=== PATIENT | male | born 1950 | race Caucasian/White ===

== ENCOUNTER 2016-09-03 02:48 | Inpatient (IN) ==
[2016-08-28 14:45] LABS: MANUAL DIFF NEEDED? NO
[2016-08-28 14:45] LABS: URINE MICRO REVIEW NEEDED? NO; URINE SOURCE CLEAN CATCH
--- NOTE | 2016-08-28 14:45 | EKG Report ---
Test Performed on : 08/28/2016 2:38:47 PM Test Reason : PAT Blood Pressure : / mmHG Vent. Rate : 064 BPM Atrial Rate : 064 BPM P-R Int : 180 ms QRS Dur : 086 ms QT Int : 426 ms P-R-T Axes : 034 008 040 degrees QTc Int : 439 ms Normal sinus rhythm. Normal ECG When compared with ECG of 11-MAR-2016 11:06, No significant change was found Confirmed by Timothy MENDEZ, José Zraate ([id number]) on 08/29/2016 9:42:37 PM
[2016-08-28 14:58] LABS: INR 1.08; PROTIME 11.4 Seconds (9.2-11.7); PTT 35.2 Seconds (22.0-36.0)
[2016-08-28 15:06] LABS: BILIRUBIN URINE NEGATIVE (NEGATIVE); BLOOD URINE NEGATIVE (NEGATIVE); COLOR YELLOW; GLUCOSE URINE NEGATIVE (NEGATIVE); LEUKOCYTES URINE NEGATIVE (NEGATIVE); NITRITE URINE NEGATIVE (NEGATIVE); PH URINE 5.5; PROTEIN URINE NEGATIVE (NEGATIVE); SP GRAVITY URINE 1.007; TURBIDITY URINE CLEAR (CLEAR); UR EPITHELIAL CELLS <10 /HPF (<10); URINE BACTERIA NEGATIVE /HPF; URINE RBC <10 /HPF (<10); URINE WBC <10 /HPF (<10); UROBILINOGEN URINE NORMAL (NORMAL)
[2016-08-28 15:09] LABS: BASO% 0.5 % (0.0-0.8); EOS# 0.24 X1000 (0.0-0.7); EOS% 3.9 % (0.0-10.0); HEMATOCRIT 46.9 % (42.0-52.0); HEMOGLOBIN 16.4 g/dL (14.0-18.0); LYMPH# 2.84 X1000 (1.2-3.4); MCV 91.6 FL (81-99); MONO# 0.61 X1000 (0.11-0.59); MONO% 9.9 % (1.7-9.3); MPV 10.9 FL (7.4-10.4); NEUT% 39.7 % (42.2-75.2); PLT 188 X1000 (130-400); RBC 5.12 XMIL (4.7-6.1)
[2016-08-28 15:19] LABS: CALCIUM 9.3 mg/dL (8.8-10.2); POTASSIUM 4.1 mmol/L (3.5-5.1)
[2016-09-03] MEDS ORDERED: DYAZIDE PO PRN (06:05)
[2016-09-03] MEDS ORDERED: KEFZOL 2 GM/D5W 2 GM/50 ML IVPB ONE (08:24)
[2016-09-03] MEDS ORDERED: PEPCID ONE ×2 (08:24)
[2016-09-03] MEDS ORDERED: LYRICA ONE (08:25)
[2016-09-03] MEDS ORDERED: LR 1,000 ML ONE (08:25)
[2016-09-03] MEDS ORDERED: COLACE ONE (08:25)
[2016-09-03] MEDS ORDERED: CELEBREX ONE (08:25)
[2016-09-03] MEDS ORDERED: REGLAN ONE (08:53)
[2016-09-03] MEDS ORDERED: NAROPIN 0.5% ONE (10:05)
[2016-09-03] MEDS ORDERED: VERSED ONE (10:09)
--- NOTE | 2016-09-03 10:13 | HISTORY AND PHYSICAL ---
CHIEF COMPLAINT: Right shoulder pain. HISTORY OF PRESENT ILLNESS: The patient has progressively had right shoulder pain over the years which has progressively gotten worse. Radiographic images obtained of his shoulder reveal images consistent with advanced degenerative joint disease. He will be admitted today for a right total shoulder arthroplasty. PAST MEDICAL HISTORY: 1. Asthma. 2. Obstructive sleep apnea. 3. Pulmonary embolus. 4. Hypertension. 5. Gastroesophageal reflux disease. 6. Peptic ulcer disease. 7. Kidney stones. 8. Osteoarthritis. PAST SURGICAL HISTORY: 1. Umbilical hernia. 2. Gallbladder surgery. 3. Right total knee arthroplasty. 4. Bilateral carpal tunnel surgery. 5. Left total shoulder arthroplasty. FAMILY HISTORY: Noncontributory. SOCIAL HISTORY: Patient is . Denies using tobacco, denies using alcohol. CURRENT HOME MEDICATIONS: Temazepam 30 mg p.o. at bedtime, triamterene, hydrochlorothiazide 37.5 mg-25 mg 1 p.o. p.r.n., Xarelto 20 mg daily. Omeprazole 40 mg p.o. daily. MSN 1000 mg p.o. daily, Ultram 50 mg p.o. q.4 hours p.r.n. for pain. ALLERGIES: No known drug allergies. PRIMARY CARE PROVIDER: Dr. Alia Delgado REVIEW OF SYSTEMS: HEENT: The patient reports wearing glasses. Denies any problems with his ears, nose, throat. Cardiac: Patient denies any cardiac problems other than hypertension. Pulmonary: Patient reports having history of asthma as a child, having sleep apnea and having a pulmonary embolus in the past. Denies any current problems. Gastrointestinal: Patient reports having peptic ulcer disease in the past and currently having gastroesophageal reflux disease. Denies any nausea, vomiting, diarrhea. Genitourinary: The patient denies any genitourinary problems. Neurological: The patient denies any numbness or tingling. Reports having good sensation in all extremities. Musculoskeletal: Patient reports having right shoulder pain and weakness. PHYSICAL EXAMINATION: GENERAL: Patient is awake, sitting up in bed. He is articulate and able to answer questions appropriately. HEENT: Head is normocephalic, atraumatic. Pupils equal, round, reactive to light. Nares patent. Throat without exudate. CARDIAC: S1-S2 auscultated. No murmur, rub or gallop noted. LUNGS: Clear to auscultation bilaterally in all lung gomez. ABDOMEN: Soft, nontender, nondistended. Bowel sounds present in all quadrants. GENITOURINARY: Not examined. NEUROLOGICAL: Patient has good sensation to dull touch in all extremities. Cranial nerves 2-12 grossly intact. MUSCULOSKELETAL: Right shoulder reveals pain with palpation of the right shoulder as well as passive range of motion. IMPRESSION: Osteoarthritis of the right shoulder. PLAN: Right total shoulder arthroplasty. The risks, benefits, and alternatives of surgery were discussed with the patient including risk of anesthesia, bleeding, damage to blood vessels, nerves, tendons, ligaments, and other imponderables were discussed. The patient agrees to proceed with surgery at this time. Dictated by SAMIA Cedillo for Aki Cavazos MD cc: SAMIA Cedillo MD
[2016-09-03] MEDS ORDERED: MARCAINE 0.25% PF/EPI 1:200,000 ONE (10:49)
[2016-09-03] MEDS ORDERED: DURAMORPH ONE (10:49)
[2016-09-03] MEDS ORDERED: SODIUM CHLORIDE 0.9% ONE (10:49)
[2016-09-03] MEDS ORDERED: TORADOL ONE (10:49)
[2016-09-03] MEDS ORDERED: CYKLOKAPRON 1,000 MG/NS 1,000 MG/100 ML IVPB ONE (10:50)
[2016-09-03] MEDS ORDERED: NEOSPORIN G.U. IRRIGANT ONE (10:51)
[2016-09-03] MEDS ORDERED: CLAVE SECONDARY SET 11953 ONE ×2 (10:51→14:12)
[2016-09-03] MEDS ORDERED: EXPAREL 1.3% ONE (10:51)
[2016-09-03 12:15] LABS: URINE MICRO REVIEW NEEDED? NO; URINE SOURCE CATH
[2016-09-03 12:26] LABS: BILIRUBIN URINE NEGATIVE (NEGATIVE); BLOOD URINE NEGATIVE (NEGATIVE); COLOR YELLOW; GLUCOSE URINE NEGATIVE (NEGATIVE); LEUKOCYTES URINE NEGATIVE (NEGATIVE); NITRITE URINE NEGATIVE (NEGATIVE); PH URINE 6.5; PROTEIN URINE NEGATIVE (NEGATIVE); SP GRAVITY URINE 1.019; TURBIDITY URINE CLEAR (CLEAR); UROBILINOGEN URINE NORMAL (NORMAL)
[2016-09-03 12:28] LABS: UR EPITHELIAL CELLS <10 /HPF (<10); URINE BACTERIA NEGATIVE /HPF; URINE RBC <10 /HPF (<10); URINE WBC <10 /HPF (<10)
[2016-09-03] MEDS ORDERED: DIPRIVAN 1% ONE (13:58)
[2016-09-03] MEDS ORDERED: LUBRIFRESH PM OPH OINTMENT ONE (14:12)
[2016-09-03] MEDS ORDERED: NEO-SYNEPHRINE ONE (14:12)
[2016-09-03] MEDS ORDERED: ZOFRAN ONE (14:12)
[2016-09-03] MEDS ORDERED: SODIUM CHLORIDE 0.9% 20 ML ONE (14:12)
[2016-09-03] MEDS ORDERED: ROBINUL ONE (14:12)
[2016-09-03] MEDS ORDERED: NEOSTIGMINE ONE (14:12)
[2016-09-03] MEDS ORDERED: DECADRON ONE (14:12)
[2016-09-03] MEDS ORDERED: OFIRMEV 1000 MG/ISOTONIC SOLN 1,000 MG/100 ML BOTTLE ONE (14:12)
[2016-09-03] MEDS ORDERED: XYLOCAINE-MPF 2% ONE (14:12)
[2016-09-03] MEDS ORDERED: QUELICIN (DOSE) ONE (14:12)
[2016-09-03] MEDS ORDERED: LR 2,000 ML ONE (14:12)
[2016-09-03] MEDS: NS 1,000 ML IV SCH (14:15)
[2016-09-03] MEDS: PRILOSEC PO SCH (14:48)
[2016-09-03] MEDS: NS 1,000 ML ONE ×2 (15:25→16:23)
--- NOTE | 2016-09-03 15:42 | Diag Imaging Result Document ---
PROCEDURE NAME: SHOULDER 1 VIEW RIGHT - 09/03/2016 PORTABLE RIGHT SHOULDER SINGLE VIEW: FINDINGS: There has been orthopaedic replacement of the right shoulder. Humeral component appears well positioned in the shaft of the humerus. There is bone spurring with arthritic changes at the acromioclavicular joint. No other bony abnormality. IMPRESSION: AC arthritis.
[2016-09-03] MEDS ORDERED: MORPHINE IV PRN (16:23)
[2016-09-03] MEDS: OXY IR PO PRN ×2 (16:28→18:11)
[2016-09-03] MEDS ORDERED: MILK OF MAGNESIA PO PRN (16:30)
[2016-09-03] MEDS ORDERED: ZOFRAN PO PRN (16:30)
[2016-09-03] MEDS ORDERED: CYKLOKAPRON 1,000 MG in NS 100 ML IV ONE (17:15)
[2016-09-03] MEDS: KEFZOL 2 GM/D5W 2 GM/50 ML IVPB IV SCH (18:05)
[2016-09-03] MEDS: TYLENOL PO SCH ×2 (18:05→18:08)
--- NOTE | 2016-09-03 18:50 | OPERATIVE NOTE ---
PROCEDURE DATE: 09/03/2016 PREOPERATIVE DIAGNOSIS: Degenerative osteoarthritis right glenohumeral joint. POSTOPERATIVE DIAGNOSIS: Degenerative osteoarthritis right glenohumeral joint. PROCEDURE: Right reverse total shoulder arthroplasty with a DePuy Delta Xtend size 12 press-fit stem, a 42+ 6 humeral cup, and a 42 eccentric Glenosphere and a standard metaglene. SURGEON: Aki Cavazos MD. LEPIDOPTERIST: GINA Barth. SECOND [employer]OV[employer]ER HAT MENDER: GINA Jeffries. ANESTHESIA: General. IV FLUIDS: Was 2000 mL lactated Ringer's. ESTIMATED BLOOD LOSS: 100 mL. COMPLICATIONS: None. INDICATION: The patient is a pleasant, 66-year-old male with a chronic history of pain and discomfort in his right shoulder. X-rays reveal significant degenerative osteoarthritis. Given patient's findings, recommendation to proceed with right reverse shoulder arthroplasty was offered. Risks of surgery were explained, including the risks of anesthesia, , bleeding, infection, failure to relieve pain, postoperative stiffness, nerve injury, blood clots, and other imponderables. All questions answered. Patient and family wish to proceed with surgery. DETAILS OF OPERATION: The patient was taken to the operating room and placed supine on the operating table. Once adequate anesthesia was obtained, the patient was placed in semi-Ma beach-chair position. The right shoulder was subsequently prepped and draped in usual sterile fashion. A standard deltopectoral incision was made with a skin knife. Hemostasis was obtained with electrocautery. The deltopectoral interval was then developed. Lenz retractors were then placed. The clavipectoral fascia was then elevated as well as the conjoined tendon. After this had been performed, the subscapularis tendon was then tendon was then identified. The subscapularis tendon was then elevated. The shoulder was then dislocated anteriorly. A starting reamer was then passed. Sequential reaming was then conducted up to size 12. A proximal humeral cutting guide was then pinned in position. The humeral head was then resected. A protective disk was then placed. Attention was then turned to the glenoid. Circumferential dissection was then performed with a deep knife. A guide was then placed in position, guide pin was then placed. Reaming was then conducted. The central hole was then dilated. The wound was then copiously irrigated with antibiotic pulsatile lavage. After this had been performed, a standard metaglene was then impacted in position. Two locking screws were placed and 2 nonlocking screws. The wound was copiously irrigated once again. A standard 42 eccentric Glenosphere was then placed with eccentricity placed inferiorly. Had good purchase. Attention then turned to the proximal humerus once again. The guide was in place in intramedullary canal. The proximal humerus was then reamed. After this had been performed, the wound was copiously with antibiotic pulsatile lavage. A size 12 press-fit stem was then placed. Had excellent purchase. Trial cup size was then placed, 42+ 6 humeral cup, and had excellent stability and range of motion. The trial cup was removed. The wound was copiously irrigated once again. A 42+ 6 humeral cup was then impacted in position. The shoulder was then reduced and carried through a range of motion with antibiotic pulsatile lavage. Exparel was placed in deep in the soft tissue as well as subcutaneous tissue. A #2 FiberWire was used to repair the subscapularis tendon. Appeared to be good repair. The wound was copiously irrigated once again. A 2-0 Vicryl was then used to repair the subcutaneous tissue, followed by running 2-0 Prolene. Benzoin and Steri-Strips applied. Adaptic, 4x4s, ABD pad, and tape was applied to the right shoulder, followed by shoulder immobilizer. All counts were correct. The patient tolerated the procedure well. He was transferred to the recovery room in stable condition. cc: Aki Cavazos MD MTDChencho
[2016-09-03] MEDS ORDERED: RESTORIL PO SCH (21:00)
[2016-09-03] MEDS: PERIDEX MT SCH (21:15)
[2016-09-03] MEDS: COLACE PO SCH (21:17)
[2016-09-04] MEDS: TYLENOL PO SCH ×2 (01:45→08:00)
[2016-09-04] MEDS: OXY IR PO PRN ×3 (03:02→11:06)
[2016-09-04] MEDS: KEFZOL 2 GM/D5W 2 GM/50 ML IVPB IV SCH (03:03)
[2016-09-04] MEDS: NS 1,000 ML IV SCH ×2 (03:03→08:00)
[2016-09-04 06:27] LABS: HEMATOCRIT 39.9 % (42.0-52.0); HEMOGLOBIN 13.5 g/dL (14.0-18.0)
[2016-09-04 06:28] LABS: AGAP 10; BUN 13 mg/dL (8-22); CALCIUM 8.6 mg/dL (8.8-10.2); CHLORIDE 103 mmol/L (98-107); COSMO 281; POTASSIUM 4.8 mmol/L (3.5-5.1); SODIUM 139 mmol/L (136-145); TCO2 26 mmol/L (25-35)
[2016-09-04 07:38] VITALS: BP 113/77
[2016-09-04] MEDS ORDERED: XARELTO PO SCH (09:00)
[2016-09-04] MEDS ORDERED: DECADRON IV ONE (09:00)
[2016-09-04] MEDS: COLACE PO SCH (09:22)
[2016-09-04] MEDS: PRILOSEC PO SCH (09:22)
[2016-09-04] MEDS: PERIDEX MT SCH (09:23)
--- NOTE | 2016-09-04 10:58 | PROGRESS NOTE ---
DATE: 09/04/2016 SUBJECTIVE: The patient is a 66-year-old male who is one day status post right reverse shoulder arthroplasty. The patient is resting comfortably. He has no complaints. PHYSICAL EXAMINATION: The patient's right shoulder dressing is intact. He is grossly neurovascularly intact. Able flex down with fingers. Good greenhouse worker strength. His hematocrit is 13.5, hemoglobin is 39.9. IMPRESSION: Postop day #1, status post right reverse shoulder arthroplasty. PLAN: At this point discussed treatment options with the patient. At this time, will change his dressing, discontinue his Redd, and Hep-Lock his IV. We will plan on discharging home after physical therapy. cc: Aki Cavazos MD
== END 2016-09-04 11:34 | disposition home or self-care (01) ==
LOC: SURHOLD 02:48 → 4N 12:34
PROVIDERS: ADMIT Orthopaedic Surgery Adult Reconstructive Orthopaedic Surgery; ATTEND Orthopaedic Surgery Adult Reconstructive Orthopaedic Surgery